=== PATIENT | female | born 1960 | race Caucasian/White ===

== ENCOUNTER 2021-06-07 17:08 | Emergency (ER) | payer OTHER ==
[~2021-06-07 17:08] MED LIST: BASAGLAR K100 UNIT/1 IJ; BASAGLAR K100 UNIT/1 SC; CELEXA20 MG PO; COZAAR50 MG PO; DIOVAN160 MG PO; GLUCAGON EMERGEN1 MG IM; HUMULIN R100 UNIT/2 SC; LIPITOR 10MG TA10 MG PO; METFORMIN HCL500 MG PO; NOVOLOG VI100 UNIT/1 SC; PHENERGAN25 M1 PO; WELLBUTRIN XL150 MG PO; ZANTAC150 MG PO; ZOFRAN4 MG PO; ZOFRAN8 MG PO; celexa PO
[2021-06-07 19:01] LABS: BASOPHIL 0.3 % (0-2); EOSINOPHIL 0.5 % (0-5); HCT 46.4 % (37.0-47.0); HGB 15.5 g/dl (12.5-16.0); LYMPHOCYTE 20.9 % (15-48); MCH 30.7 pg (25.0-31.0); MCHC 33.4 g/dL (32.0-36.0); MCV 91.9 fL (78.0-100.0); MONOCYTE 9.1 % (0-12); MPV 9.3 fL (6.0-9.5); NEUTROPHIL 68.1 % (41-80); NRBC 0; PLT 404 K/uL (150-400); RBC 5.05 M/uL (4.20-5.40); RDW 11.6 % (11.5-14.0); WBC 10.3 K/uL (4.0-10.5)
[2021-06-07 19:04] LABS: INR 0.99 (0.9-1.2); PROTHROMBIN TIME 12.5 SECONDS (11.8-13.4); PTT 22.5 SECONDS (24.4-34.7)
[2021-06-07 19:20] LABS: LACTIC ACID 1.2 mmol/L (0.4-1.9)
[2021-06-07 19:22] LABS: ALBUMIN 4.1 g/dL (3.4-5.0); BILIRUBIN - TOTAL 0.4 mg/dL (0.2-1.0); BUN/CREAT RATIO (CALC) 21.9 RATIO; CREATININE 0.64 mg/dL (0.51-0.95); FT4 (FREE T4) 1.2 ng/dL (0.76-1.46); GLOBULIN (CALCULATION) 3.6 g/dL; MAGNESIUM 1.4 mg/dL (1.8-2.4); POTASSIUM 3.6 mmol/L (3.5-5.1); TOTAL PROTEIN 7.7 g/dL (6.4-8.2); URIC ACID 4.5 mg/dL (2.6-6.2)
[2021-06-07] MEDS ORDERED: PHENERGAN25 M1 PO (22:44)
[2021-06-07] MEDS ORDERED: ONDANSETRON ODT4 MG PO (22:44)
[2021-06-07] MEDS ORDERED: LEVSIN-SL0.125 M1 SL (23:27)
== END 2021-06-07 23:40 | disposition home or self-care (01) ==
LOC: FER 17:08
PROVIDERS: Emergency Medicine
DX: R10.9 Unspecified abdominal pain (principal); R11.2 Nausea with vomiting, unspecified; K95.09 Other complications of gastric band procedure; I10 Essential (primary) hypertension; E10.9 Type 1 diabetes mellitus without complications; F17.210 Nicotine dependence, cigarettes, uncomplicated; Z79.4 Long term (current) use of insulin; Z20.822 Contact with and (suspected) exposure to COVID-19
CPT/HCPCS: 36415; 36600; 80053; 82803; 83605; 83690; 83735; 84145; 84439; 84443; 84484; 84550; 85025; 85610; 85730; 93005; J1170; J2405; J2765; J3475; J7030; J7050; U0002

== ENCOUNTER 2021-09-07 10:12 | Emergency (ER) | payer OTHER ==
[~2021-09-07 10:12] MED LIST changes: +LEVSIN-SL0.125 M1 SL; +ONDANSETRON ODT4 MG PO
[2021-09-07 11:06] LABS: BASOPHIL 0.2 % (0-2); EOSINOPHIL 0.7 % (0-5); HCT 37.1 % (37.0-47.0); HGB 12.4 g/dl (12.5-16.0); LYMPHOCYTE 10.4 % (15-48); MCH 30.2 pg (25.0-31.0); MCHC 33.4 g/dL (32.0-36.0); MCV 90.5 fL (78.0-100.0); MONOCYTE 7.1 % (0-12); MPV 9.9 fL (6.0-9.5); NEUTROPHIL 81.3 % (41-80); NRBC 0; PLT 368 K/uL (150-400); RDW 12.3 % (11.5-14.0); WBC 15.4 K/uL (4.0-10.5)
[2021-09-07 12:43] LABS: CREATININE 0.45 mg/dL (0.51-0.95)
== END 2021-09-07 13:21 | disposition home or self-care (01) ==
LOC: FER 10:12
PROVIDERS: Emergency Medicine
DX: R07.89 Other chest pain (principal); I10 Essential (primary) hypertension; E11.9 Type 2 diabetes mellitus without complications; F17.210 Nicotine dependence, cigarettes, uncomplicated; Z20.822 Contact with and (suspected) exposure to COVID-19; Z88.0 Allergy status to penicillin; Z88.5 Allergy status to narcotic agent; Z79.84 Long term (current) use of oral hypoglycemic drugs; Z79.4 Long term (current) use of insulin; Z79.899 Other long term (current) drug therapy
CPT/HCPCS: 36415; 71046; 80048; 82553; 84484; 85025; 85379; 93005; U0002